=== PATIENT | male | born 1980 | race Caucasian/White ===

== ENCOUNTER 2018-05-23 08:25 | Emergency (ER) | payer OTHER ==
[2018-05-23 08:33] VITALS: BP 105/64; PULSE 66; TEMP 98.5; BMI 29.8
--- NOTE | 2018-05-23 09:20 | PDOC ---
History of Present Illness - General Chief Complaint: Eye Problem Stated Complaint: LT EYE IRRITATION Time Seen by Provider: 05/23/18 09:02 History Source: Patient Exam Limitations: Clinical Condition - History of Present Illness Initial Comments: 05/23/18 09:15 Patient with no significant past medical history present with complaint of foreign body sensation in left eye with irritation when he closes the eye vision works as a composite worker and unsure if he had eyelashes and eye. Reported redness in the eye upon waking this morning which has improved. Denies blurry vision, eye pain or change in vision. Denies any other symptoms Timing/Duration: 24 hours Past History - Past Medical History Allergies/Adverse Reactions: Allergies Allergy/AdvReac Type Severity Reaction Status Date / Time No Known Allergies Allergy Verified 05/23/18 08:54 Home Medications: Ambulatory Orders Ofloxacin 0.3% Ophth Soln [Ocuflox -] 1 drop OS Q6H 5 Days #1 bottle 05/23/18 COPD: No - Immunization History Immunization Up to Date: Yes - Suicide/Smoking/Psychosocial Hx Smoking History: Never smoked Hx Alcohol Use: No Drug/Substance Use Hx: No Review of Systems - Review of Systems Able to Perform ROS?: Yes Is the patient limited [place] proficient: No Constitutional: No: Malaise HEENTM: Yes: Symptoms Reported, See HPI, Eye Pain (left eye). No: Blurred Vision, Tearing, Recent change in vision, Double Vision, Cataracts, Ear Pain, Ocular Prothesis, Ear Discharge, Nose Pain, Nose Congestion, Tinnitus, Nose Bleeding, Hearing Loss, Throat Pain, Throat Swelling, Mouth Pain, Dental Problems, Difficulty Swallowing, Mouth Swelling, Other Respiratory: No: Symptoms reported, See HPI, Cough, Orthopnea, Shortness of Breath, SOB with Exertion, SOB at Rest, Stridor, Wheezing, Productive cough, Hemoptysis, Other Cardiac (ROS): No: Symptoms Reported, See HPI, Chest Pain, Edema, Irregular Heart Rate, Lightheadedness, Palpitations, Syncope, Chest Tightness, Other ABD/GI: No: Nausea, Vomiting All Other Systems: Reviewed and Negative *Physical Exam - Vital Signs Last Vital Signs Temp Pulse Resp BP Pulse Ox 98.5 F 66 16 105/64 98 05/23/18 08:30 05/23/18 08:30 05/23/18 08:30 05/23/18 08:30 05/23/18 08:30 - Physical Exam General Appearance: Yes: Nourished, Appropriately Dressed. No: Apparent Distress HEENT: positive: EOMI, PALOMA, Normal ENT Inspection, Pharynx Normal, Other ( small piece of eyelash in lateral aspect of left conjunctiva on exam with fluorescein stain) Neck: positive: Supple Respiratory/Chest: negative: Respiratory Distress, Accessory Muscle Use Cardiovascular: positive: Regular Rhythm, Regular Rate Medical Decision Making - Medical Decision Making 05/23/18 09:18 Patient present with complaint of foreign body sensation in left eye since yesterday which is worse with closing left eye. Exam significant for small piece of eyelash seen in the lateral aspect of left conjunctiva on exam under fluorescein staining. Piece of eyelash removed with a 4 x 4 gauze. Left eye irrigated at irrigation station. Patient reported improved symptoms. Patient is stable for discharge on ofloxacin eyedrops for infection prophylaxis and ophthalmology follow-up as needed *DC/Admit/Observation/Transfer Diagnosis at time of Disposition: Foreign body in eye Qualifiers: Encounter type: initial encounter Laterality: left Qualified Code(s): T15.92XA - Foreign body on external eye, part unspecified, left eye, initial encounter - Discharge Dispostion Disposition: HOME Condition at time of disposition: Stable Decision to Admit order: No - Prescriptions Prescriptions: Ofloxacin 0.3% Ophth Soln [Ocuflox -] 1 drop OS Q6H 5 Days #1 bottle - Referrals Referrals: Patric Gaing MD [Primary Care Provider] - - Patient Instructions Printed Discharge Instructions: DI for Foreign Body in the Eye Additional Instructions: use prescribed drops for infection prophylaxis. Follow-up with ophthalmology as needed - Post Discharge Activity
== END 2018-05-23 09:28 | disposition home or self-care (01) ==
LOC: JER 08:25 → JERFT 08:25
PROC: 08C Eye, Extirpation (ICD-10-PCS; principal; 2018-05-23)
PROC: 3E1CX8Z Irrigation of Eye using Irrigating Substance (ICD-10-PCS; 2018-05-23)
DX: T15.11XA Foreign body in conjunctival sac, right eye, initial encounter (principal)
CPT/HCPCS: 99281-25

== ENCOUNTER 2018-09-24 18:52 | Emergency (ER) | payer OTHER ==
[2018-09-24 19:01] VITALS: BP 119/60; PULSE 76; TEMP 98.2; BMI 29.5
--- NOTE | 2018-09-24 19:51 | PDOC ---
History of Present Illness - General Chief Complaint: Laceration Stated Complaint: LACERATION Time Seen by Provider: 09/24/18 19:04 History Source: Patient Exam Limitations: No Limitations - History of Present Illness Initial Comments: 09/24/18 19:49 38 y/o male with injury to left finger while usig a razor blade at work. Pt states had tdap 2 years ago and denies immunosupression. No c/o limited ROM Timing/Duration: 1/2 hour Severity: mild Associated Symptoms: reports: denies symptoms Past History - Travel Traveled outside of the country in the last 30 days: No - Past Medical History Allergies/Adverse Reactions: Allergies Allergy/AdvReac Type Severity Reaction Status Date / Time No Known Allergies Allergy Verified 09/24/18 19:01 Home Medications: Ambulatory Orders Ofloxacin 0.3% Ophth Soln [Ocuflox -] 1 drop OS Q6H 5 Days #1 bottle 05/23/18 COPD: No - Immunization History Immunization Up to Date: Yes - Suicide/Smoking/Psychosocial Hx Smoking History: Never smoked Hx Alcohol Use: No Drug/Substance Use Hx: No Patient Lives Alone: No Lives with/in: spouse/SO Review of Systems - Review of Systems Able to Perform ROS?: Yes Constitutional: No: Symptoms Reported Integumentary: Yes: Other (left finger laceration) Neurological: No: Symptoms reported *Physical Exam - Vital Signs Last Vital Signs Temp Pulse Resp BP Pulse Ox 98.2 F 76 14 119/60 99 09/24/18 18:59 09/24/18 18:59 09/24/18 18:59 09/24/18 18:59 09/24/18 18:59 - Physical Exam General Appearance: Yes: Nourished, Appropriately Dressed. No: Apparent Distress Integumentary: positive: Warm, Other (linear lac to pip joint of left 3rd digit dorsally measurung 2.5 cm ) Neurologic: positive: Motor Strength 5/5 (intact flexor and extensor tendon of left 3rd digit) Procedures - Laceration/Wound Repair Left Finger Wound Length: to 2.5 cm Wound Explored: clean Wound's Depth, Shape: linear Irrigated w/ Saline: Yes Betadine Prep: Yes Anesthesia: 1% Lidocaine Amount of Anesthetic (ccs): 1 Wound Debrided: minimal Wound Repaired With: Sutures Suture Size/Type: 4:0 Number of Sutures: 7 Layer Closure: No Splint Applied: Yes Type of Splint Applied: metal Medical Decision Making - Medical Decision Making 09/24/18 19:48 CC: left 3rd digit lac secondary to perez knife. UTD tdap Exam: lac to dorsal aspect of left 3rd digit over pip joint Plan: lac repair with sutures metal splint applied. return in 10-14 days for removal *DC/Admit/Observation/Transfer Diagnosis at time of Disposition: Laceration of finger - Discharge Dispostion Disposition: HOME Condition at time of disposition: Improved - Referrals Referrals: Patric Giang MD [Primary Care Provider] - - Patient Instructions Printed Discharge Instructions: DI for Laceration Repair Additional Instructions: Keep area clean and dry. Return in 10-14 days for suture removal. If area becomes red or drains pus like fluid, return to ED. - Post Discharge Activity
== END 2018-09-24 20:31 | disposition home or self-care (01) ==
LOC: JERFT 18:52
PROC: 2W3KX1Z Immobilization of Left Finger using Splint (ICD-10-PCS; principal; 2018-09-24)
PROC: 0HQGXZZ Repair Left Hand Skin, External Approach (ICD-10-PCS; 2018-09-24)
DX: S61.213A Laceration without foreign body of left middle finger without damage to nail, initial encounter (principal); W27.8XXA Contact with other nonpowered hand tool, initial encounter; Y93.89 Activity, other specified; Y92.69 Other specified industrial and construction area as the place of occurrence of the external cause; Y99.0 Civilian activity done for income or pay
CPT/HCPCS: 99281-25

== ENCOUNTER 2020-05-08 19:57 | Emergency (ER) | payer OTHER ==
[2020-05-08 20:09] VITALS: BP 127/77; PULSE 63; TEMP 98.5; BMI 30.5
[2020-05-08] MEDS ORDERED: IBUPROFEN 600 MG TABLET (FP) PO ONE ×2 (20:50→20:51)
== END 2020-05-08 21:10 | disposition home or self-care (01) ==
LOC: JER 19:57
DX: S43.102A Unspecified dislocation of left acromioclavicular joint, initial encounter (principal)
CPT/HCPCS: 73000-TC-LT-FY; 73000-TC-RT-FY; 73030-TC-LT-FY; 99285-25

== ENCOUNTER 2022-01-18 02:14 | Emergency (ER) | payer OTHER ==
[2022-01-18 02:29] VITALS: BP 107/67; PULSE 59; RESP 18; TEMP 97.7; BMI 28.3
[2022-01-18] MEDS ORDERED: FLUORESCEIN NA 1 EA STRIP OD ONE (04:21)
[2022-01-18] MEDS ORDERED: TETRACAINE 0.5% OPHTH SOLN 2 ML BOTTLE OD ONE (04:21)
[2022-01-18] MEDS ORDERED: TETRACAINE 0.5% OPHTH SOLN 2 ML BOTTLE ONE (04:24)
[2022-01-18] MEDS ORDERED: FLUORESCEIN NA 1 EA STRIP ONE (04:24)
== END 2022-01-18 05:35 | disposition home or self-care (01) ==
LOC: JER 02:14
DX: H57.89 Other specified disorders of eye and adnexa (principal)
CPT/HCPCS: 99283-25

== ENCOUNTER 2023-07-15 09:06 | Emergency (ER) | payer OTHER ==
[2023-07-15 09:14] VITALS: BP 110/73; PULSE 61; RESP 18; TEMP 98; BMI 28.7
== END 2023-07-15 10:37 | disposition home or self-care (01) ==
LOC: JER 09:06
DX: J01.00 Acute maxillary sinusitis, unspecified (principal); R51.9 Headache, unspecified; R09.81 Nasal congestion
CPT/HCPCS: 99283-25